=== PATIENT | male | born 1970 | race Caucasian/White ===

== ENCOUNTER 2017-02-27 12:35 | Emergency (ER) | payer OTHER ==
[2017-02-27 13:04] VITALS: BMI 20.5
[2017-02-27 13:05] VITALS: RESP 18; TEMP 98
[2017-02-27] MEDS ORDERED: Tetracaine 0.5% Ophth (OR ONLY) ONE (13:34)
[2017-02-27] MEDS ORDERED: Tetracaine 0.5% Ophth 2 ML BOTTLE OD ONE (13:43)
[2017-02-27] MEDS ORDERED: Fluorescein 1 mg Ophthalmic Strip OD ONE (13:43)
--- NOTE | 2017-02-27 14:06 | C.PDOC ---
History Of Present Illness 46 y/o male presents to the ED with complaints of right eye pain and irritation. 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 History of heroin abuse, detox 07/2016 and 08/2016. Pt clean for 3 months, currently using. Denies LOC, vomiting or any other complaints. Time Seen by Provider: 02/27/17 13:41 Chief Complaint (Nursing): Eye Problem History Per: Patient History/Exam Limitations: no limitations Onset/Duration Of Symptoms: Hrs Current Symptoms Are (Timing): Still Present Injury To Eye?: Yes Severity: Moderate Quality: "Pain" Wears Contact Lens?: No Associated Symptoms: Pain, Decreased Vision, FB Sensation Recent travel outside of the [place]: No Past Medical History Reviewed: Historical Data, Nursing Documentation, Vital Signs Vital Signs: Last Vital Signs Temp 98.0 F 02/27/17 13:05 Pulse 87 02/27/17 13:05 Resp 18 02/27/17 13:05 BP 105/70 02/27/17 13:05 Pulse Ox 98 02/27/17 14:15 Family History: States: Unknown Family Hx - Social History Hx Tobacco Use: Yes Hx Alcohol Use: No Hx Substance Use: No - Immunization History Hx Tetanus Toxoid Vaccination: No Hx Influenza Vaccination: No Hx Pneumococcal Vaccination: No Review Of Systems Except As Marked, All Systems Reviewed And Found Negative. Eyes: Positive for: Pain (right eye pain/injury), Vision Change (decreased vision right eye) Gastrointestinal: Negative for: Vomiting Physical Exam - Physical Exam Appears: Non-toxic, No Acute Distress, Other (hypersomnolent) Skin: Warm, Dry, No Rash Head: Atraumatic, Normacephalic Eye(s): bilateral: Other (Pinpoint pupils. Fluoroscein stain with 2 drops tetracaine on right eye using pelayo lamp noting large corneal abrasion from 7-1 o'clock, tiny foreign body at center or cornea, removed with needle) Chest: Symmetrical Cardiovascular: Rhythm Regular, No Murmur Respiratory: Normal Breath Sounds, No Rales, No Rhonchi, No Wheezing Neurological/Psych: Oriented x3, Normal Speech ED Course And Treatment O2 Sat by Pulse Oximetry: 98 (room air) Pulse Ox Interpretation: Normal Reevaluation Time: 14:05 Reassessment Condition: Improved Medical Decision Making Medical Decision Making: large R corneal abrasion with small FB. FB removed, well tolerated. interested in repeat heroine detox, but not today. Would rather call for availability later this week Unable to prescribe narcotic pain relievers for this corneal pain as pt admits to active heroine abuse daily. Disposition Doctor Will See Patient In The: Office Counseled Patient/Family Regarding: Studies Performed, Diagnosis - Disposition Referrals: [facility] Grabiel Harrington MD [Staff Provider] - Disposition: HOME/ ROUTINE Disposition Time: 14:05 Condition: GOOD Additional Instructions: ice pack to R eye for pain control Motrin 600 mg every 6 hours as needed Follow-up with Dr. Harrington- Opthalmologist- for re-eval in 1-2 days Call our Crisis Workers to seek availability for Heroine detox programs this week [phone] Instructions: Corneal Abrasion (ED), Eye Foreign Body (ED) - Clinical Impression Clinical Impression: Drug abuse, Corneal abrasion, Contusion of eye, Corneal foreign body - Scribe Statement The provider has reviewed the documentation as recorded by the Nubiaibtom Huff Provider Attestation: All medical record entries made by the Nubiaibe were at my direction and personally dictated by me. I have reviewed the chart and agree that the record accurately reflects my personal performance of the history, physical exam, medical decision making, and the department course for this patient. I have also personally directed, reviewed, and agree with the discharge instructions and disposition.
[2017-02-27 14:20] VITALS: BP 124/72; PULSE 71
[2017-02-27 14:23] VITALS: O2SAT 98
== END 2017-02-27 14:25 | disposition home or self-care (01) ==
LOC: C.ER 12:35
DX: T15.01XA Foreign body in cornea, right eye, initial encounter (principal); S05.11XA Contusion of eyeball and orbital tissues, right eye, initial encounter; W22.8XXA Striking against or struck by other objects, initial encounter; Y92.89 Other specified places as the place of occurrence of the external cause; Y99.0 Civilian activity done for income or pay; F11.10 Opioid abuse, uncomplicated

== ENCOUNTER 2017-03-04 22:49 | Inpatient (IN) | payer MEDICAID, OTHER ==
[2017-03-04 22:49] VITALS: BMI 20.5
[2017-03-04 23:53] LABS: BASO # 0.1 K/uL (0.0-0.2); BASO % 0.8 % (0.0-2.0); EOS # 0.6 K/uL (0.0-0.7); EOS % 5.3 % (0.0-4.0); HEMOGLOBIN 13.3 g/dL (12.0-18.0); LYMPH # 3.8 K/uL (1.0-4.3); LYMPH % 34.7 % (20.0-40.0); MEAN CELL VOLUME 89.6 fL (80.0-94.0); MEAN CORPUSCULAR HGB CONC 32.4 g/dL (33.0-37.0); MEAN PLATELET VOLUME 8.8 fL (7.2-11.7); MONO % 8.9 % (0.0-10.0); NEUT # 5.5 K/uL (1.8-7.0); NEUT % 50.3 % (50.0-75.0); NRBC % 0.1 % (0.0-2.0); RBC 4.58 Mil/uL (4.40-5.90); RED CELL DISTRIBUTION WIDTH 13.3 % (11.5-14.5)
[2017-03-04 23:56] LABS: SQUAMOUS EPITHIAL < 1 /hpf (0-5); URINE BILIRUBIN NEGATIVE (NEGATIVE); URINE BLOOD NEGATIVE (NEGATIVE); URINE CLARITY Clear (Clear); URINE COLOR Yellow (YELLOW); URINE GLUCOSE (UA) NORMAL (Normal); URINE LEUKOCYTE ESTERASE NEG Leu/uL (Negative); URINE NITRATE NEGATIVE (NEGATIVE); URINE PROTEIN NEGATIVE (NEGATIVE); URINE UROBILINOGEN NORMAL mg/dL (0.2-1.0)
[2017-03-05 00:01] LABS: ALBUMIN 3.9 g/dL (3.5-5.0)
--- NOTE | 2017-03-05 00:01 | C.PDOC ---
History Of Present Illness 46 year old male who presents to the ER as a prescreen for heroin detox; admits he is a regular heroin user. Patient was incidentally seen by this physician for a right eye corneal abrasion earlier in the week and reports he has no pain. Denies any physical complaints. Time Seen by Provider: 03/04/17 23:25 Chief Complaint (Nursing): Substance Abuse History Per: Patient History/Exam Limitations: no limitations Onset/Duration Of Symptoms: Days Current Symptoms Are (Timing): Still Present Suicide/Self Injury Attempted (Context): None Modifying Factor(s): Narcotics Associated Symptoms: denies: Depression, Suicidal Thoughts, Suicidal Plan Involuntary Hold By: None Recent travel outside of the [place]: No Past Medical History Reviewed: Historical Data, Nursing Documentation, Vital Signs Vital Signs: Last Vital Signs Temp 98.1 F 03/04/17 23:12 Pulse 78 03/04/17 23:12 Resp 16 03/04/17 23:12 BP 126/73 03/04/17 23:12 Pulse Ox 100 03/05/17 00:04 - Medical History PMH: Anxiety, Depression, Schizophrenia Surgical History: No Surg Hx Family History: States: Unknown Family Hx - Social History Hx Tobacco Use: Yes Hx Alcohol Use: No Hx Substance Use: Yes - Immunization History Hx Tetanus Toxoid Vaccination: No Hx Influenza Vaccination: No Hx Pneumococcal Vaccination: No Review Of Systems Constitutional: Negative for: Fever, Chills Eyes: Negative for: Pain Gastrointestinal: Negative for: Nausea, Vomiting, Diarrhea Physical Exam - Physical Exam Appears: Non-toxic, No Acute Distress Skin: Normal Color, Warm, Dry Head: Atraumatic, Normacephalic Eye(s): bilateral: Normal Inspection, PERRL, EOMI Oral Mucosa: Moist Chest: Symmetrical, No Tenderness Cardiovascular: Rhythm Regular, No Murmur Respiratory: Normal Breath Sounds, No Rales, No Rhonchi, No Wheezing Gastrointestinal/Abdominal: Soft, No Tenderness Neurological/Psych: Oriented x3, Normal Speech, Normal Cognition ED Course And Treatment - Laboratory Results Result Diagrams: 03/04/17 23:50 03/04/17 23:50 Lab Interpretation: Abnormal (tox + benzo/opiates) O2 Sat by Pulse Oximetry: 100 (Room air) Pulse Ox Interpretation: Normal Progress Note: Blood work ordered. Crisis contacted. Reevaluation Time: 00:36 Reassessment Condition: Improved - Physician Consult Information Outcome Of Conversation: 2330: d/w Crisis Evaluators- pending dispo Medical Decision Making Medical Decision Making: persistent heroine and benzo abuse. Disposition - Disposition Disposition Time: 01:00 Condition: GOOD - Clinical Impression Clinical Impression: Narcotic drug user, Benzodiazepine abuse - Scribe Statement The provider has reviewed the documentation as recorded by the Scribe Grabiel Rudolph All medical record entries made by the Scribe were at my direction and personally dictated by me. I have reviewed the chart and agree that the record accurately reflects my personal performance of the history, physical exam, medical decision making, and the department course for this patient. I have also personally directed, reviewed, and agree with the discharge instructions and disposition. Physician Patient Turnover Patient Signed Over To: Manuel Griffin Handoff Comments: pending dispo by Crisis Srinivasa
[2017-03-05 00:03] LABS: GFR AFRICAN-AMERICAN > 60; GFR NON-AFRICAN AMERICAN > 60
[2017-03-05 00:04] LABS: ALB/GLOB RATIO 1.3 (1.0-2.1); ALT/SGPT 37 U/L (21-72); AST/SGOT 27 U/L (17-59); BLOOD UREA NITROGEN 19 mg/dL (9-20); CALCIUM 8.6 mg/dl (8.6-10.4)
[2017-03-05 00:05] LABS: BARBITURATES, UR NEGATIVE (NEGATIVE)
[2017-03-05 00:09] LABS: PHENCYCLIDINE, UR NEGATIVE (NEGATIVE)
[2017-03-05 00:11] LABS: BENZODIAZEPINES, UR POSITIVE (NEGATIVE); OPIATES, UR POSITIVE (NEGATIVE)
[2017-03-05 03:24] VITALS: RESP 18
--- NOTE | 2017-03-05 08:08 | PCM.BM ---
<Daria Flores - Last Filed: 03/05/17 08:07> Treatment Plan Problems - Problems identified on initial assessmt Polysubstance Dependence Date Initiated: 03/05/17 Time Initiated: 08:08 Assessment reference: NA Status: Active Treatment assets and liabiliti Patient Assests: ADL independent Patient Liabilities: substance abuse - Milieu Protocol Maintain good personal hygiene: daily Encourage regular showers, daily Remind patient to perform daily oral care, daily Assist patient to perform ADL's Maintain personal safety: every shift Educate patient to report safety concerns to staff, every shift Monitor environment for contraband/sharps Medication safety: Monitor for expected outcome, potential side effects: every shift, Assess barriers to learning: every shift, Assess readiness for medication education: every shift <Adam Jane - Last Filed: 03/06/17 09:42> - Diagnosis (1) Acute narcotic withdrawal Status: Acute Interventions: 03/06/17 09:43 * Assess 7x/week regarding severity of withdrawal * Educate regarding risks, benefits, side effects and alternatives of medications * Use Motivational Interviewing for abstinence * Use CBT for relapse prevention * Medication management for withdrawal symptoms * Encourage medication assisted treatment * (2) Narcotic drug user Status: Acute Interventions: 03/06/17 09:44 * Assess 7x/week regarding severity of withdrawal * Educate regarding risks, benefits, side effects and alternatives of medications * Use Motivational Interviewing for abstinence * Use CBT for relapse prevention * Medication management for withdrawal symptoms * Encourage medication assisted treatment * <Gretchen Valera - Last Filed: 03/06/17 13:12> Discharge/Continuing Care - Education Needs Education Needs: Patient Coping Skills, Significant Other Coping Skills - Discharge Discharge Criteria: Other (PT. IS SIGNING OUT AMA.) - Treatment Team Participation Patient/Family/SO Statement: 03/06/17 13:12 I'M NOT GONNA MISS MY PROBATION MEETING TODAY. Discussed with Family/SO: No Was Patient/Family/SO present at Treatment Team Meeting: Yes
[2017-03-05] MEDS ORDERED: Aluminum Hydroxide/Magnesium Hydroxide Susp (30 mL) PO PRN (09:34)
--- NOTE | 2017-03-05 09:39 | PCM.PSYCH ---
Initial Psychiatric Evaluation - Initial Psychiatric Evaluation Type of Admission: Voluntary Legal Status: Capacity Chief Complaint (in patient's own words): I am withdrawing form heroin.' History of Present Illness and Precipitating Events: This is a 46 years old HM who lives with his and 3 kids, came to the ED to get help in heroin detox. Patient denies any history of inpatient psychiatric hospitalization and denies any h/o follow up with any psychiatrist. Patient reports that he remained sober for 4 years and started going to the Methadone program at [facility]. But he started developing side effects of the medications, including hair loss. He stopped going to the program and relapsed on heroin. He reports of abusing 15-20 bags daily, last abuse was 20 bags yesterday. Patient reports withdrawal symptoms including sweating, headaches, and anxiety. He reports irritability but denies any depressive, manic or anxiety symptoms. Patient denies any auditory or visual hallucinations or any psychotic symptoms. He reports off and on drinking but denies any other substance abuse. Past medical history None reported Current Medications: Active Medications Generic Name Dose Route Start Last Admin Trade Name Freq PRN Reason Stop Dose Admin Acetaminophen 650 mg 03/05/17 09:34 Tylenol 325mg Tab PO Q4H PRN Fever greater than 101 F Al Hydrox/Mg Hydrox/Simethicone 30 ml 03/05/17 09:34 Maalox 30 Ml PO TID PRN Indigestion / Heartburn Clonidine HCl 0.1 mg 03/05/17 09:34 Catapres PO Q8 PRN COWS Score More or Equal to 5 Gabapentin 100 mg 03/05/17 10:00 Neurontin PO TID MARVA Hydroxyzine HCl 25 mg 03/05/17 09:35 Atarax PO Q6 PRN Agitation Loperamide HCl 2 mg 03/05/17 09:34 Imodium PO Q8 PRN Diarrhea Ondansetron HCl 4 mg 03/05/17 09:34 Zofran Tab PO Q8 PRN Nausea/Vomiting Trazodone HCl 50 mg 03/05/17 22:00 Desyrel PO HS MARVA Past Psychiatric History - Past Psychiatric History Previous Treatment History: Inpatient Pertinent Medical Hx (Current Medical&Sleep Prob, Allergies): Allergies Allergy/AdvReac Type Severity Reaction Status Date / Time No Known Allergies Allergy Verified 02/27/17 13:04 No Known Home Med 08/23/16 Review of Systems - Review of Systems All systems: reviewed and no additional remarkable complaints except - Psychiatric Psychiatric: Anxiety, Irritability Mental Status Examination - Personal Presentation Personal Presentation: Looks stated age - Affect Affect: Constricted - Motor Activity Motor Activity: Calm - Reliability in Providing Information Reliability in Providing Information: Good - Speech Speech: Organized - Mood Mood: Anxious - Formal Thought Process Formal Thought Process: No Impairment - Obsessions/Compulsions Obsessions: No Compulsions: No - Cognitive Functions Orientation: Person, Place, Situation, Time Sensorium: Alert Attention/Concentration: Attentive Abstract Thinking: Burton Estimate of Intelligence: Below average Judgement: Imparied, as evidence by: Poor judgement, Intact, as evidence by: Insight regarding need for hospitalization - Risk Risk: Withdrawal, Diminished functioning - Strength & Assets Inventory Strength & Assets Inventory: Family support DSM 5 DX - DSM 5 DSM 5 Diagnosis: Opioid use disorder severe Opioid withdrawal - Recommended/Plan of Treatment Treatment Recommendations and Plan of Treatment: Opioid use disorder severe CBT Psychoeducation Supportive therapy, individual therapy Use NE for abstinence Opioid withdrawal CBT Psychoeducation Supportive therapy, individual therapy Clonidine when necessary Start Methadone when scoring PRN meds - Smoking Cessation Smoking Cessation Initiated: No
--- NOTE | 2017-03-05 17:34 | RAD ---
PROCEDURE: AP pelvis and oblique view of the right hip HISTORY: Difficulty ambulating (right hip) COMPARISON: No prior similar study for comparison. TECHNIQUE: AP view of the pelvis oblique view of the right hip FINDINGS: No evidence of acute fracture or dislocation. The osseous structures are grossly unremarkable. IMPRESSION: No evidence of acute fracture or dislocation.
[2017-03-06 09:44] VITALS: BP 120/74; PULSE 98; TEMP 98.7; O2SAT 99
--- NOTE | 2017-03-06 10:20 | PCM.PYCHDC ---
Mental Status Examination - Mental Status Examination Orientation: Person, Place, Situation, Time Memory: Intact Mood: Neutral Affect: Constricted Speech: Soft Attention: Poor Concentration: Poor Fund of Knowledge: Poor Formal Thought Process: No Impairment Suicidal Ideation: No Current Homicidal Ideation?: No Discharge Summary - Discharge Note Reason for Hospitalization: Patient was admitted for opioid detox. Consultations:: List each consultation separately and include: 1. Reason for request. 2. Findings. 3. Follow-up Summary of Hospital Course include:: 1. Description of specific treatment plan utilized for patients during their course of treatmen. 2. Summarize the time- course for resolution of acute symptoms and/or regressed behaviors. 3. Describe issues identified and worked on during hospitalization. 4. Describe medication utilized. 5. Describe medical problems identified and treated. 6. Reassessment of suicide risk Summary of Hospital Course: Upon admission This is a 46 years old HM who lives with his and 3 kids, came to the ED to get help in heroin detox. Patient denies any history of inpatient psychiatric hospitalization and denies any h/o follow up with any psychiatrist. Patient reports that he remained sober for 4 years and started going to the Methadone program at [facility]. But he started developing side effects of the medications, including hair loss. He stopped going to the program and relapsed on heroin. He reports of abusing 15-20 bags daily, last abuse was 20 bags yesterday. Patient reports withdrawal symptoms including sweating, headaches, and anxiety. He reports irritability but denies any depressive, manic or anxiety symptoms. Patient denies any auditory or visual hallucinations or any psychotic symptoms. He reports off and on drinking but denies any other substance abuse. Past medical history None reported Upon discharge The pt was admitted and started on treatment with psychotherapy, support, psychoeducation and medications. MS and CBT used. The pt attended groups and activities, as well as milieu therapy. All the risks and benefits of medications are discussed and the patient understood and agreed. The pt did not complete the detox protocol, and left against medical advice. DYFS was called. - Diagnosis (1) Acute narcotic withdrawal Status: Acute Priority: Medium Comment: Pt stable Nicoderm patch Pt recommended to follow up with psych out-patient (2) Narcotic drug user Status: Acute Comment: Pt stable Nicoderm patch Pt recommended to follow up with psych outpatient - Final Diagnosis (DSM 5) Condition upon Discharge: FAIR DSM 5: Opioid use disorder severe Opioid withdrawal Disposition: AGAINST MEDICAL ADVICE Follow-up Treatment Plan: Follow after care plan as discussed. Patient refused to complete detox protocol before leaving against medical advice, and states that he will "stay occupied" to prevent relapse. Use relapse prevention skills. Return to ER or call 911 if suicidal, homicidal or symptoms relapse. Stay away from stress, alcohol and drugs. See primary doctor once a year.
== END 2017-03-06 10:48 | disposition left against medical advice (07) | DRG 743 ==
LOC: C.ER 22:49 → C.7D 03-05 00:43
PROVIDERS: ADMIT Psychiatry & Neurology Psychiatry; ATTEND Psychiatry & Neurology Psychiatry
PROC: HZ2ZZZZ Detoxification Services for Substance Abuse Treatment (ICD-10-PCS; principal; 2017-03-05)
PROC: HZ91ZZZ Pharmacotherapy for Substance Abuse Treatment, Methadone Maintenance (ICD-10-PCS; 2017-03-05)
PROC: HZ59ZZZ Individual Psychotherapy for Substance Abuse Treatment, Supportive (ICD-10-PCS; 2017-03-05)
PROC: HZ46ZZZ Group Counseling for Substance Abuse Treatment, Psychoeducation (ICD-10-PCS; 2017-03-05)
DX: F11.23 Opioid dependence with withdrawal (principal); F13.10 Sedative, hypnotic or anxiolytic abuse, uncomplicated; F20.9 Schizophrenia, unspecified; F41.9 Anxiety disorder, unspecified; F17.200 Nicotine dependence, unspecified, uncomplicated

== ENCOUNTER 2017-03-14 17:43 | Emergency (ER) | payer MEDICAID, OTHER ==
[2017-03-14 17:43] VITALS: BMI 20.5
[2017-03-14 17:50] VITALS: O2SAT 98
--- NOTE | 2017-03-14 18:04 | C.PDOC ---
History Of Present Illness 46 yo male come in for evaluation of Right hip pain for past 3 weeks " after was lifting heavy boxes". Pt reports, pain is localized, worse with movement. Pt admits, was seen here before due to same complaints and xray performed without acute abnormalities. Pt sts, his AM, had difficulty to ambulate due to Right hip pain". Otherwise, pt denies recent direct trauma or injury. fever, chills, sore throat, neck pain, abd. pain, N/V, UTi sx, saddle anesthesia, incontinence, denies weakness, sensory or vascular deficits to B/L LEs. Ambulate to ED. Time Seen by Provider: 03/14/17 17:53 Chief Complaint (Nursing): Hip Pain History Per: Patient Past Medical History Reviewed: Historical Data, Nursing Documentation, Vital Signs Vital Signs: Last Vital Signs Temp 98.0 F 03/14/17 19:09 Pulse 70 03/14/17 19:09 Resp 18 03/14/17 19:09 BP 122/78 03/14/17 19:09 Pulse Ox 98 03/14/17 19:09 - Medical History PMH: Anxiety, Depression, Schizophrenia Denies: Diabetes, Hepatitis, HIV, HTN, Seizures, Sexually Transmitted Disease - [facility] Procedures DETOXIFICATION SERVICES FOR SUBSTANCE ABUSE TREATMENT (03/05/17) GROUP SHUTTLE VENEERING SUPERVISOR FOR SUBSTANCE ABUSE TREATMENT, PSYCHOEDUCATION (03/05/17) INDIV PSYCHOTHERAPY FOR SUBSTANCE ABUSE TREATMENT, SUPPORT (03/05/17) PHARMACOTHERAPY FOR SUBSTANCE ABUSE, METHADONE MAINT (03/05/17) Family History: States: Unknown Family Hx - Social History Hx Tobacco Use: Yes Hx Alcohol Use: No Hx Substance Use: Yes - Immunization History Hx Tetanus Toxoid Vaccination: No Hx Influenza Vaccination: No Hx Pneumococcal Vaccination: No Review Of Systems Except As Marked, All Systems Reviewed And Found Negative. Constitutional: Negative for: Fever, Chills ENT: Negative for: Throat Pain Cardiovascular: Negative for: Chest Pain Gastrointestinal: Negative for: Nausea, Vomiting, Abdominal Pain, Diarrhea Genitourinary: Negative for: Dysuria, Frequency, Incontinence, Penile Discharge Musculoskeletal: Positive for: Back Pain Skin: Negative for: Rash, Bruising Neurological: Negative for: Weakness, Numbness Physical Exam - Physical Exam Appears: Well, Non-toxic, No Acute Distress Skin: Normal Color, Warm, Dry, No Rash Throat: No Exudate, No Drooling Gastrointestinal/Abdominal: Soft, No Tenderness, No Distention, No Guarding Back: No CVA Tenderness, No Vertebral Tenderness, Paraspinal Tenderness ( diffuse Right sided lumbar tenderness extend down to gluteal area overlying sciatica neurve. No skin changes, no palpable eformity.) Extremity: No Pedal Edema, No Calf Tenderness (B/L), No Deformity, No Swelling Pulses: Left Dorsalis Pedis: Normal, Right Dorsalis Pedis: Normal DTR: Knee (R): 2+, Knee (L): 2+, Ankle (R): 2+, Ankle (L): 2+ Neurological/Psych: Oriented x3, Normal Speech, Normal Motor, Normal Sensation, Normal Reflexes ED Course And Treatment O2 Sat by Pulse Oximetry: 98 Progress Note: On re-evaluation, pt is afebrile, hemodynamicaly stable. Non- toxic. Ambulatory in ED with stable gait. Abd: benign. Back: (-) CVA tenderness. neurologicaly intact. Pt has clinical findings c/w Right sided sciatica pain. Pt advised. Ref. to F/U with PMD, PM in 2-3 days for re-eavl. return to ED if any worsening or new changes. Disposition Counseled Patient/Family Regarding: Diagnosis, Need For Followup, Rx Given - Disposition Referrals: [facility] [Outside] [facility] [place] [Outside] Disposition: HOME/ ROUTINE Disposition Time: 18:49 Condition: STABLE Additional Instructions: LIght duty to lower back, avoid heavy lifting, bending, etc. take medication as prescribed for pain Follow up with PMD in 2-3 days for re-evaluation. return to ED if any worsening or new changes. Prescriptions: Ibuprofen [Motrin Tab] 600 mg PO Q6 #20 tab Methocarbamol [Robaxin] 500 mg PO TID #14 tab Instructions: Sciatica (ED) - Clinical Impression Clinical Impression: Sciatica
[2017-03-14 19:10] VITALS: BP 122/78; PULSE 70; RESP 18; TEMP 98
== END 2017-03-14 19:10 | disposition home or self-care (01) ==
LOC: C.ER 17:43
DX: M54.31 Sciatica, right side (principal)
CPT/HCPCS: 96372; 99284; J1885

== ENCOUNTER 2017-03-15 15:23 | Emergency (ER) | payer OTHER ==
[2017-03-15 15:23] VITALS: BMI 20.5
[2017-03-15] MEDS ORDERED: Dexamethasone 4 mg/1 ml IM STA (16:01)
[2017-03-15] MEDS ORDERED: Oxycodone/Acetaminophen 5/325 mg Tab PO STA (16:01)
[2017-03-15] MEDS ORDERED: Naproxen 550 mg Tab PO STA (16:02)
[2017-03-15] MEDS ORDERED: Dexamethasone 4 mg/1 ml ONE (16:15)
[2017-03-15] MEDS ORDERED: Naproxen 550 mg Tab PO ONE (16:16)
[2017-03-15] MEDS ORDERED: Oxycodone/Acetaminophen 5/325 mg Tab ONE (16:16)
--- NOTE | 2017-03-15 16:23 | C.PDOC ---
History Of Present Illness 46 yr old male presents to the ER with complaints of right lower back pain and right hip pain for the past 1 month. Patient states the pain is consistent. Reports of similar complaints and was seen in [facility] yesterday for same complaints. Patient denies fever, chest pain, SOB, nausea, vomiting, abdominal pain, diarrhea, constipation, dysuria, incontinence, hematuria, weakness or numbness. Time Seen by Provider: 03/15/17 15:33 Chief Complaint (Nursing): Hip Pain History Per: Patient History/Exam Limitations: no limitations Onset/Duration Of Symptoms: Persistent (1 month ) Current Symptoms Are (Timing): Still Present Past Medical History Reviewed: Historical Data, Nursing Documentation, Vital Signs Vital Signs: Last Vital Signs Temp 98.4 F 03/15/17 17:26 Pulse 80 03/15/17 17:26 Resp 20 03/15/17 17:26 BP 148/82 03/15/17 17:26 Pulse Ox 98 03/15/17 17:35 - Medical History PMH: Anxiety, Depression, Schizophrenia - [facility] Procedures DETOXIFICATION SERVICES FOR SUBSTANCE ABUSE TREATMENT (03/05/17) GROUP MANAGER EMERGENCY DEPARTMENT FOR SUBSTANCE ABUSE TREATMENT, PSYCHOEDUCATION (03/05/17) INDIV PSYCHOTHERAPY FOR SUBSTANCE ABUSE TREATMENT, SUPPORT (03/05/17) PHARMACOTHERAPY FOR SUBSTANCE ABUSE, METHADONE MAINT (03/05/17) Family History: States: No Known Family Hx - Social History Hx Tobacco Use: Yes Hx Alcohol Use: No Hx Substance Use: Yes - Immunization History Hx Tetanus Toxoid Vaccination: No Hx Influenza Vaccination: No Hx Pneumococcal Vaccination: No Review Of Systems Except As Marked, All Systems Reviewed And Found Negative. Constitutional: Negative for: Fever Cardiovascular: Negative for: Chest Pain Respiratory: Negative for: Shortness of Breath Gastrointestinal: Negative for: Nausea, Vomiting, Abdominal Pain, Diarrhea, Constipation Genitourinary: Negative for: Dysuria, Incontinence, Hematuria Musculoskeletal: Positive for: Back Pain (Right lower back pain ) Neurological: Negative for: Weakness, Numbness Physical Exam - Physical Exam Appears: Non-toxic, No Acute Distress Skin: Warm, Dry, No Rash Head: Atraumatic, Normacephalic Eye(s): bilateral: Normal Inspection, PERRL, EOMI Oral Mucosa: Moist Neck: Normal ROM, No Midline Cervical Tenderness, No Paracervical Tenderness, Supple Chest: Symmetrical, No Tenderness Cardiovascular: Rhythm Regular, No Friction Rub, No Murmur Respiratory: Normal Breath Sounds, No Rales, No Rhonchi, No Stridor, No Wheezing Gastrointestinal/Abdominal: Normal Exam, Soft, No Tenderness Back: No CVA Tenderness, Other ((+) Moderate right sided paralumbar tenderness. ) Extremity: Normal ROM, No Swelling Neurological/Psych: Oriented x3, Normal Speech, Normal Motor Gait: Steady ED Course And Treatment O2 Sat by Pulse Oximetry: 98 (RA ) Pulse Ox Interpretation: Normal Progress Note: Old records were reviewed, patient was dischagred with Motrin and Robaxin yesterday. On re-exam, the patient reports improvement of symptoms. Ambulatory in the ED with steady gait. Lungs are CTA, heart is RRR, Abdomen is soft, non-tender and patient is tolerating PO well. Follow up with the medical doctor within 1-2 days. Return if worsened. Disposition - Disposition Referrals: Mor Eden MD [Non-Staff] - Disposition: HOME/ ROUTINE Disposition Time: 17:16 Condition: GOOD Additional Instructions: Follow up with the medical doctor within 1-2 days. Return if worsened. 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 - Scribe Statement The provider has reviewed the documentation as recorded by the Scribe Eneida Marquez All medical record entries made by the Scribe were at my direction and personally dictated by me. I have reviewed the chart and agree that the record accurately reflects my personal performance of the history, physical exam, medical decision making, and the department course for this patient. I have also personally directed, reviewed, and agree with the discharge instructions and disposition.
[2017-03-15 17:27] VITALS: BP 148/82; PULSE 80; RESP 20; TEMP 98.4
[2017-03-15 17:35] VITALS: O2SAT 98
== END 2017-03-15 17:32 | disposition home or self-care (01) ==
LOC: C.ER 15:23
DX: M54.16 Radiculopathy, lumbar region (principal)
CPT/HCPCS: 96372; 99284; J1100

== ENCOUNTER 2017-09-01 18:41 | Emergency (ER) | payer OTHER ==
[2017-09-01 18:42] VITALS: BMI 20.5
[2017-09-01 18:48] VITALS: BP 119/84; PULSE 87; RESP 16; TEMP 97.8; O2SAT 98
== END 2017-09-01 18:57 | disposition left against medical advice (07) ==
LOC: C.ER 18:41
DX: Z02.89 Encounter for other administrative examinations (principal); Z00.00 Encounter for general adult medical examination without abnormal findings

== ENCOUNTER 2017-09-08 13:36 | Emergency (ER) | payer OTHER ==
[2017-09-08 13:36] VITALS: BMI 20.5
[2017-09-08 14:05] VITALS: BP 123/74; PULSE 79; RESP 18; TEMP 98.5; O2SAT 99
--- NOTE | 2017-09-08 14:38 | C.PDOC ---
History Of Present Illness 47 year old male presents to the ER for detox from heroin. Patient states that he uses heroin daily intranasally. Patient denies having any suicidal and homicidal ideation. Time Seen by Provider: 09/08/17 14:24 Chief Complaint (Nursing): Substance Abuse History Per: Patient History/Exam Limitations: no limitations Past Medical History Reviewed: Historical Data, Nursing Documentation, Vital Signs Vital Signs: Last Vital Signs Temp 98.5 F 09/08/17 14:03 Pulse 79 09/08/17 14:03 Resp 18 09/08/17 14:03 BP 123/74 09/08/17 14:03 Pulse Ox 99 09/08/17 15:41 - Medical History PMH: Anxiety, Depression, Schizophrenia Surgical History: No Surg Hx - [facility] Procedures DETOXIFICATION SERVICES FOR SUBSTANCE ABUSE TREATMENT (03/05/17) GROUP SECTION GANG WORKER FOR SUBSTANCE ABUSE TREATMENT, PSYCHOEDUCATION (03/05/17) INDIV PSYCHOTHERAPY FOR SUBSTANCE ABUSE TREATMENT, SUPPORT (03/05/17) PHARMACOTHERAPY FOR SUBSTANCE ABUSE, METHADONE MAINT (03/05/17) Family History: States: No Known Family Hx - Social History Hx Tobacco Use: Yes Hx Alcohol Use: No Hx Substance Use: Yes - Immunization History Hx Tetanus Toxoid Vaccination: No Hx Influenza Vaccination: No Hx Pneumococcal Vaccination: No Review Of Systems Except As Marked, All Systems Reviewed And Found Negative. Physical Exam - Physical Exam Appears: No Acute Distress, Other (bizzare affect) Skin: Normal Color, Warm, Dry, No Diaphoretic, No Rash Head: Atraumatic, Normacephalic Eye(s): bilateral: Normal Inspection, PERRL, EOMI Nose: Normal Oral Mucosa: Moist Neck: Supple Chest: Symmetrical Cardiovascular: Rhythm Regular Respiratory: Normal Breath Sounds, No Accessory Muscle Use, No Rhonchi, No Wheezing Extremity: Bilateral: Atraumatic, Normal ROM Neurological/Psych: Oriented x3, Normal Speech, Normal Motor, Normal Sensation Gait: Steady ED Course And Treatment O2 Sat by Pulse Oximetry: 99 (RA) Pulse Ox Interpretation: Normal Medical Decision Making Medical Decision Making: Patient asking for Detox from opiates. Case was discussed with Crisis. There are no beds available. Patient has been given a list of detox centers and a phone number for prescreen. 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 - Scribe Statement The provider has reviewed the documentation as recorded by the Nubiaibe Romina Prado Provider Attestation All medical record entries made by the Nubiaibe were at my direction and personally dictated by me. I have reviewed the chart and agree that the record accurately reflects my personal performance of the history, physical exam, medical decision making, and the department course for this patient. I have also personally directed, reviewed, and agree with the discharge instructions and disposition.
== END 2017-09-08 14:44 | disposition home or self-care (01) ==
LOC: C.ER 13:36
DX: F11.10 Opioid abuse, uncomplicated (principal)

== ENCOUNTER 2017-09-12 14:52 | Inpatient (IN) | payer MEDICAID, OTHER ==
[2017-09-12 14:52] VITALS: BMI 20.5
[2017-09-12 16:11] LABS: BASO # 0.1 K/uL (0.0-0.2); BASO % 1.1 % (0.0-2.0); EOS # 0.4 K/uL (0.0-0.7); EOS % 4.7 % (0.0-4.0); HEMOGLOBIN 13.4 g/dL (12.0-18.0); LYMPH # 3.1 K/uL (1.0-4.3); LYMPH % 33.9 % (20.0-40.0); MEAN CELL VOLUME 89.2 fL (80.0-94.0); MEAN CORPUSCULAR HEMOGLOBIN 29.8 pg (27.0-31.0); MEAN CORPUSCULAR HGB CONC 33.4 g/dL (33.0-37.0); MEAN PLATELET VOLUME 8.2 fL (7.2-11.7); MONO # 0.9 K/uL (0.0-0.8); MONO % 9.6 % (0.0-10.0); NEUT # 4.6 K/uL (1.8-7.0); NEUT % 50.7 % (50.0-75.0); RBC 4.48 Mil/uL (4.40-5.90); RED CELL DISTRIBUTION WIDTH 13.7 % (11.5-14.5)
[2017-09-12 16:23] LABS: BLOOD UREA NITROGEN 12 mg/dL (9-20); GFR AFRICAN-AMERICAN > 60; GFR NON-AFRICAN AMERICAN > 60
[2017-09-12 16:24] LABS: ALB/GLOB RATIO 1.2 (1.0-2.1); ALBUMIN 3.9 g/dL (3.5-5.0); ALT/SGPT 65 U/L (21-72); AST/SGOT 25 U/L (17-59); CALCIUM 8.3 mg/dl (8.6-10.4)
[2017-09-12 16:27] LABS: BARBITURATES, UR NEGATIVE (NEGATIVE); BENZODIAZEPINES, UR NEGATIVE (NEGATIVE); PHENCYCLIDINE, UR NEGATIVE (NEGATIVE)
[2017-09-12 16:29] LABS: OPIATES, UR POSITIVE (NEGATIVE)
[2017-09-12 16:31] LABS: URINE BACTERIA RARE (<OCC); URINE BILIRUBIN NEGATIVE (NEGATIVE); URINE BLOOD NEGATIVE (NEGATIVE); URINE CALCIUM OXALATE CRYSTALS OCC /hpf (<OCC); URINE CLARITY Clear (Clear); URINE COLOR Yellow (YELLOW); URINE GLUCOSE (UA) NORMAL (Normal); URINE LEUKOCYTE ESTERASE NEG Leu/uL (Negative); URINE NITRATE NEGATIVE (NEGATIVE); URINE PROTEIN NEGATIVE (NEGATIVE)
--- NOTE | 2017-09-12 17:01 | C.PDOC ---
History Of Present Illness 47 y/o male presents to ED requesting heroin detox. Patient reports last used this morning and denies IV drug use, other drug use, history of seizures or any other complaints at this time. Time Seen by Provider: 09/12/17 15:29 Chief Complaint (Nursing): Substance Abuse History Per: Patient History/Exam Limitations: no limitations Onset/Duration Of Symptoms: Days Current Symptoms Are (Timing): Still Present Suicide/Self Injury Attempted (Context): None Past Medical History Reviewed: Historical Data, Nursing Documentation, Vital Signs Vital Signs: Last Vital Signs Temp 97.9 F 09/12/17 15:21 Pulse 94 H 09/12/17 15:21 Resp 20 09/12/17 15:21 BP 126/78 09/12/17 15:21 Pulse Ox 99 09/12/17 15:21 - Medical History PMH: Anxiety, Depression, Schizophrenia Surgical History: No Surg Hx - [facility] Procedures DETOXIFICATION SERVICES FOR SUBSTANCE ABUSE TREATMENT (03/05/17) GROUP DIRECTOR MARKETING ANALYTICS FOR SUBSTANCE ABUSE TREATMENT, PSYCHOEDUCATION (03/05/17) INDIV PSYCHOTHERAPY FOR SUBSTANCE ABUSE TREATMENT, SUPPORT (03/05/17) PHARMACOTHERAPY FOR SUBSTANCE ABUSE, METHADONE MAINT (03/05/17) Family History: States: No Known Family Hx - Social History Hx Tobacco Use: Yes Hx Alcohol Use: No Hx Substance Use: Yes - Immunization History Hx Tetanus Toxoid Vaccination: No Hx Influenza Vaccination: No Hx Pneumococcal Vaccination: No Review Of Systems Constitutional: Negative for: Fever, Chills Cardiovascular: Negative for: Chest Pain Respiratory: Negative for: Shortness of Breath Gastrointestinal: Negative for: Nausea, Vomiting Skin: Negative for: Rash Psych: Negative for: Suicidal ideation, Withdrawal Physical Exam - Physical Exam Appears: Non-toxic, No Acute Distress Skin: Warm, Dry, No Rash Head: Atraumatic, Normacephalic Eye(s): bilateral: Normal Inspection Oral Mucosa: Moist Neck: Normal ROM, Supple Chest: Symmetrical Cardiovascular: Rhythm Regular Respiratory: No Accessory Muscle Use, No Rales, No Rhonchi, No Wheezing Gastrointestinal/Abdominal: Soft, No Tenderness, No Guarding, No Rebound Back: No CVA Tenderness Extremity: Normal ROM, Capillary Refill (<2 seconds) Neurological/Psych: Oriented x3 ED Course And Treatment - Laboratory Results Result Diagrams: 09/12/17 16:04 09/12/17 16:04 O2 Sat by Pulse Oximetry: 99 (RA) Pulse Ox Interpretation: Normal Progress Note: Patient is prescreened. 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 - Scribe Statement The provider has reviewed the documentation as recorded by the Nubiaibtom Matias All medical record entries made by the Nubiaibtom were at my direction and personally dictated by me. I have reviewed the chart and agree that the record accurately reflects my personal performance of the history, physical exam, medical decision making, and the department course for this patient. I have also personally directed, reviewed, and agree with the discharge instructions and disposition.
[2017-09-12] MEDS ORDERED: Aluminum Hydroxide/Magnesium Hydroxide Susp (30 mL) PO PRN (18:48)
--- NOTE | 2017-09-12 19:31 | PCM.BM ---
<GuerreroRut - Last Filed: 09/12/17 19:29> Treatment Plan Problems - Problems identified on initial assessmt Potential for opiate withdrawal Date Initiated: 09/12/17 Time Initiated: 19:30 Date resolved: 09/12/17 Assessment reference: NA Status: Active Priority: 1 Treatment assets and liabiliti Patient Assests: ADL independent, negotiates basic needs, cognitively intact Patient Liabilities: substance abuse (heroin) - Milieu Protocol Maintain good personal hygiene: daily Encourage regular showers, daily Remind patient to perform daily oral care, daily Assist patient to perform ADL's Conduct patient checks and document Observation sheet: Q15 minutes Maintain personal safety: every shift Educate patient to report safety concerns to staff, every shift Monitor environment for contraband/sharps Medication safety: Monitor for expected outcome, potential side effects: every shift, Assess barriers to learning: every shift, Assess readiness for medication education: every shift <Adam Jane - Last Filed: 09/13/17 14:36> - Diagnosis (1) Opioid use disorder, severe, dependence Status: Acute Interventions: 09/13/17 14:36 * Assess 7x/week regarding severity of withdrawal * Educate regarding risks, benefits, side effects and alternatives of medications * Use Motivational Interviewing for abstinence * Use CBT for relapse prevention * Medication management for withdrawal symptoms * Encourage medication assisted treatment *
--- NOTE | 2017-09-13 09:37 | PCM.PSYCH ---
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 Patient reports that he remained sober for 4 years and started going to the methadone program at [facility]. But he started developing side effects of the medications, including hair loss. He stopped going to the program and relapsed on heroin. He reports of abusing less than 10 bags daily, last abuse was yesterday. Patient reports withdrawal symptoms including sweating, chills, irritability, nausea and anxiety. He reports irritability but denies any depressive, manic or anxiety symptoms. Patient denies any auditory or visual hallucinations or any psychotic symptoms. He reports off and on drinking but denies any other substance abuse. Patient denies any history of inpatient psychiatric hospitalization and denies any h/o follow up with any psychiatrist. Past medical history: None reported No known family history Current Medications: Active Medications Generic Name Dose Route Start Last Admin Trade Name Freq PRN Reason Stop Dose Admin Al Hydrox/Mg Hydrox/Simethicone 30 ml 09/12/17 18:48 Maalox 30 Ml PO TID PRN Indigestion / Heartburn Clonidine HCl 0.1 mg 09/12/17 18:48 Catapres PO Q8 PRN COWS Score More or Equal to 5 Gabapentin 100 mg 09/13/17 10:00 09/13/17 09:09 Neurontin PO 100 mg TID MARVA Administration Loperamide HCl 2 mg 09/12/17 18:48 Imodium PO Q8 PRN Diarrhea Ondansetron HCl 4 mg 09/12/17 18:48 Zofran Tab PO Q8 PRN Nausea/Vomiting Pseudoephedrine HCl 60 mg 09/12/17 18:48 Sudafed Tab PO QID PRN Nasal/Sinus Congestion Trazodone HCl 50 mg 09/12/17 22:00 09/12/17 21:55 Desyrel PO Not Given HS MARVA Past Psychiatric History - Past Psychiatric History Previous Treatment History: None Pertinent Medical Hx (Current Medical&Sleep Prob, Allergies): Allergies Allergy/AdvReac Type Severity Reaction Status Date / Time No Known Allergies Allergy Verified 09/12/17 15:22 No Known Home Med 09/01/17 Review of Systems - Psychiatric Psychiatric: Abnormal Sleep Pattern, Anxiety, Difficulty Concentrating, Irritability. absent: Hallucinations, Homicidal Ideation, Suicidal Ideation Mental Status Examination - Personal Presentation Personal Presentation: Looks stated age - Affect Affect: Constricted - Motor Activity Motor Activity: Calm - Reliability in Providing Information Reliability in Providing Information: Fair - Speech Speech: Organized - Mood Mood: Anxious - Formal Thought Process Formal Thought Process: No Impairment - Cognitive Functions Orientation: Person, Place, Situation, Time Sensorium: Alert Attention/Concentration: Easily distracted Estimate of Intelligence: Average Judgement: Intact, as evidence by: Insight regarding need for hospitalization Memory: Recent intact, as evidence by: Ability to recall events of the day, Remote intact, as evidenced by: Abilit to recall sig. life events - Risk Risk: Withdrawal, Diminished functioning - Strength & Assets Inventory Strength & Assets Inventory: Cooperative - Limitations Limitations: Living alone, Other DSM 5 DX - DSM 5 DSM 5 Diagnosis: Opioid withdrawal Opioid use d/o - severe - Recommended/Plan of Treatment Treatment Recommendations and Plan of Treatment: Methadone detox Gabapentin for augmentation As needed medications All risks, benefits and alternatives of the meds discussed, and the pt agreed and understood. Attend groups and activities Supportive therapy and psychoeducation NV for abstinence CBT for relapse prevention Encourage MAT Refer to rehab or IOP, and self-help groups Smoking cessation with NV Nicotine patch 34 min Projected ELOS: 4-5 days Prognosis: Good with treatment - Smoking Cessation Smoking Cessation Initiated: Yes
[2017-09-14 09:06] VITALS: BP 139/77; PULSE 85; RESP 18; TEMP 98; O2SAT 100
== END 2017-09-14 12:20 | disposition left against medical advice (07) | DRG 743 ==
LOC: C.ER 14:52 → C.7D 17:34
PROVIDERS: ADMIT Psychiatry & Neurology Psychiatry; ATTEND Psychiatry & Neurology Psychiatry
PROC: HZ2ZZZZ Detoxification Services for Substance Abuse Treatment (ICD-10-PCS; principal; 2017-09-12)
PROC: HZ59ZZZ Individual Psychotherapy for Substance Abuse Treatment, Supportive (ICD-10-PCS; 2017-09-12)
PROC: HZ56ZZZ Individual Psychotherapy for Substance Abuse Treatment, Psychoeducation (ICD-10-PCS; 2017-09-12)
PROC: HZ90ZZZ Pharmacotherapy for Substance Abuse Treatment, Nicotine Replacement (ICD-10-PCS; 2017-09-12)
DX: F11.23 Opioid dependence with withdrawal (principal); F20.9 Schizophrenia, unspecified; F41.9 Anxiety disorder, unspecified; F17.210 Nicotine dependence, cigarettes, uncomplicated

== ENCOUNTER 2018-01-23 00:08 | Emergency (ER) | payer MEDICAID, OTHER ==
[2018-01-23 00:09] VITALS: BMI 20.5
--- NOTE | 2018-01-23 01:07 | C.PDOC ---
History Of Present Illness 47 year old male is brought to the ED by [facility] after being found leaning on a fence in the street. Patient admits to sniffing heroin today. Patient denies SI/ HI, hallucinations, fever chills, CP, SOB. Time Seen by Provider: 01/23/18 01:07 Chief Complaint (Nursing): Substance Abuse History Per: Patient, EMS History/Exam Limitations: intoxication Onset/Duration Of Symptoms: Days Suicide/Self Injury Attempted (Context): None Modifying Factor(s): Other (Heroin) Severity: None Associated Symptoms: denies: Depression, Suicidal Thoughts, Suicidal Plan Recent travel outside of the [place]: No Additional History Per: Patient, EMS, Law Enforcement Past Medical History Reviewed: Historical Data, Nursing Documentation, Vital Signs Vital Signs: Last Vital Signs Temp 97.4 F L 01/23/18 00:11 Pulse 70 01/23/18 03:20 Resp 18 01/23/18 03:20 BP 108/70 01/23/18 03:20 Pulse Ox 98 01/23/18 03:20 - Medical History PMH: Anxiety, Depression, Schizophrenia Denies: Diabetes, Hepatitis, HIV, HTN, Seizures, Sexually Transmitted Disease Surgical History: No Surg Hx - [facility] Procedures DETOXIFICATION SERVICES FOR SUBSTANCE ABUSE TREATMENT (09/12/17) GROUP VIOLENT CRIMES DETECTIVE FOR SUBSTANCE ABUSE TREATMENT, PSYCHOEDUCATION (03/05/17) INDIV PSYCHOTHERAPY FOR SUBSTANCE ABUSE TREATMENT, SUPPORT (09/12/17) INDIV PSYCHOTHERAPY FOR SUBSTANCE ABUSE, PSYCHOEDUCATION (09/12/17) PHARMACOTHERAPY FOR SUBSTANCE ABUSE, METHADONE MAINT (03/05/17) PHARMACOTHERAPY FOR SUBSTANCE ABUSE, NICOTINE REPLACE (09/12/17) Family History: States: Unknown Family Hx - Social History Hx Tobacco Use: Yes Hx Alcohol Use: No Hx Substance Use: Yes - Immunization History Hx Tetanus Toxoid Vaccination: No Hx Influenza Vaccination: No Hx Pneumococcal Vaccination: No Review Of Systems Constitutional: Negative for: Fever, Chills Cardiovascular: Negative for: Chest Pain Respiratory: Negative for: Shortness of Breath Gastrointestinal: Negative for: Nausea, Vomiting Skin: Negative for: Rash Psych: Negative for: Depression, Suicidal ideation Physical Exam - Physical Exam Appears: Non-toxic, No Acute Distress Skin: Warm, Dry, Other (no signs of trauma) Head: Normacephalic Eye(s): bilateral: Normal Inspection Oral Mucosa: Moist Neck: Supple Chest: Symmetrical Cardiovascular: Rhythm Regular Respiratory: No Rales, No Rhonchi, No Wheezing Gastrointestinal/Abdominal: Soft, No Tenderness, No Guarding, No Rebound Extremity: No Tenderness, No Swelling Extremity: Bilateral: Atraumatic, Normal Color And Temperature, Normal ROM Neurological/Psych: Oriented x3, Normal Speech Gait: Unable To Assess ED Course And Treatment O2 Sat by Pulse Oximetry: 99 (ON RA) Pulse Ox Interpretation: Normal Reevaluation Time: 05:08 Reassessment Condition: Improved Disposition Counseled Patient/Family Regarding: Studies Performed, Diagnosis, Need For Followup - Disposition Referrals: [facility] [Outside] Disposition: HOME/ ROUTINE Disposition Time: 01:07 Condition: FAIR Instructions: Polysubstance Abuse (DC) Forms: [facility] (Frisian) - Clinical Impression Clinical Impression: Heroin abuse - Scribe Statement The provider has reviewed the documentation as recorded by the Scribe Antonino Walker All medical record entries made by the Scribe were at my direction and personally dictated by me. I have reviewed the chart and agree that the record accurately reflects my personal performance of the history, physical exam, medical decision making, and the department course for this patient. I have also personally directed, reviewed, and agree with the discharge instructions and disposition.
[2018-01-23 05:22] VITALS: BP 113/85; PULSE 85; RESP 16; TEMP 97.6; O2SAT 97
== END 2018-01-23 05:28 | disposition home or self-care (01) ==
LOC: C.ER 00:08
DX: F11.10 Opioid abuse, uncomplicated (principal); F20.9 Schizophrenia, unspecified; Z72.0 Tobacco use

== ENCOUNTER 2018-02-01 18:03 | Inpatient (IN) | payer MEDICAID, OTHER ==
[2018-02-01 18:03] VITALS: BMI 20.5
--- NOTE | 2018-02-01 19:44 | C.PDOC ---
History Of Present Illness 47 year old male with a Hx of heroin abuse presents to the ER requesting detox. Denies suicidal ideation or homicidal ideation Time Seen by Provider: 02/01/18 18:39 Chief Complaint (Nursing): Substance Abuse History Per: Patient History/Exam Limitations: no limitations Onset/Duration Of Symptoms: Days Current Symptoms Are (Timing): Still Present Suicide/Self Injury Attempted (Context): None Associated Symptoms: denies: Suicidal Thoughts, Other (Homicidal ideation) Involuntary Hold By: None Recent travel outside of the [place]: No Past Medical History Reviewed: Historical Data, Nursing Documentation, Vital Signs Vital Signs: Last Vital Signs Temp 98.9 F 02/01/18 18:26 Pulse 81 02/01/18 18:26 Resp 18 02/01/18 18:26 BP 109/67 02/01/18 18:26 Pulse Ox 98 02/01/18 20:32 - Medical History PMH: Anxiety, Depression, Schizophrenia - [facility] Procedures DETOXIFICATION SERVICES FOR SUBSTANCE ABUSE TREATMENT (09/12/17) GROUP REVISING CLERK FOR SUBSTANCE ABUSE TREATMENT, PSYCHOEDUCATION (03/05/17) INDIV PSYCHOTHERAPY FOR SUBSTANCE ABUSE TREATMENT, SUPPORT (09/12/17) INDIV PSYCHOTHERAPY FOR SUBSTANCE ABUSE, PSYCHOEDUCATION (09/12/17) PHARMACOTHERAPY FOR SUBSTANCE ABUSE, METHADONE MAINT (03/05/17) PHARMACOTHERAPY FOR SUBSTANCE ABUSE, NICOTINE REPLACE (09/12/17) Family History: States: Unknown Family Hx - Social History Hx Tobacco Use: Yes Hx Alcohol Use: No Hx Substance Use: Yes (heroin) - Immunization History Hx Tetanus Toxoid Vaccination: No Hx Influenza Vaccination: No Hx Pneumococcal Vaccination: No Review Of Systems Except As Marked, All Systems Reviewed And Found Negative. Physical Exam - Physical Exam Appears: Non-toxic Skin: Normal Color, Warm, Dry Head: Atraumatic, Normacephalic Eye(s): bilateral: Normal Inspection Oral Mucosa: Moist Chest: Symmetrical, No Tenderness Cardiovascular: Rhythm Regular Respiratory: Normal Breath Sounds, No Rales, No Rhonchi, No Wheezing Gastrointestinal/Abdominal: Soft, No Tenderness Extremity: Normal ROM (x4) Neurological/Psych: Oriented x3, Normal Speech Gait: Steady ED Course And Treatment - Laboratory Results Result Diagrams: 02/01/18 19:43 02/01/18 19:43 O2 Sat by Pulse Oximetry: 98 (Room air) Pulse Ox Interpretation: Normal Medical Decision Making Medical Decision Making: Assessment: Heroin abuse Plan: * Blood work * Urinalysis * Crisis Patient accepted for admission to the detox unit by Dr. Antonio for opiate abuse. Disposition Discussed With .: Mendoza Antonio Counseled Patient/Family Regarding: Studies Performed, Diagnosis - Disposition Disposition: HOSPITALIZED Disposition Time: 20:33 Condition: FAIR Forms: [facility] (Hungarian) - Clinical Impression Clinical Impression: Opiate abuse, continuous - Scribe Statement The provider has reviewed the documentation as recorded by the Scribe Grabiel Rudolph All medical record entries made by the Scribe were at my direction and personally dictated by me. I have reviewed the chart and agree that the record accurately reflects my personal performance of the history, physical exam, medical decision making, and the department course for this patient. I have also personally directed, reviewed, and agree with the discharge instructions and disposition.
[2018-02-01 19:46] LABS: BASO # 0.1 K/uL (0.0-0.2); BASO % 0.7 % (0.0-2.0); EOS # 0.5 K/uL (0.0-0.7); EOS % 4.2 % (0.0-4.0); HEMOGLOBIN 12.2 g/dL (12.0-18.0); LYMPH # 3.1 K/uL (1.0-4.3); MEAN CORPUSCULAR HEMOGLOBIN 29.5 pg (27.0-31.0); MEAN CORPUSCULAR HGB CONC 33.2 g/dL (33.0-37.0); MEAN PLATELET VOLUME 8.4 fL (7.2-11.7); MONO # 1.1 K/uL (0.0-0.8); MONO % 8.7 % (0.0-10.0); NEUT % 62.4 % (50.0-75.0); RBC 4.12 Mil/uL (4.40-5.90); RED CELL DISTRIBUTION WIDTH 13.1 % (11.5-14.5); WHITE BLOOD COUNT 12.9 K/uL (4.8-10.8)
[2018-02-01 19:58] LABS: SQUAMOUS EPITHIAL < 1 /hpf (0-5); URINE BACTERIA RARE (<OCC); URINE BILIRUBIN NEGATIVE (NEGATIVE); URINE BLOOD NEGATIVE (NEGATIVE); URINE CLARITY Hazy (Clear); URINE COLOR Yellow (YELLOW); URINE GLUCOSE (UA) NORMAL (Normal); URINE LEUKOCYTE ESTERASE NEG Leu/uL (Negative); URINE PROTEIN NEGATIVE (NEGATIVE)
[2018-02-01 19:59] LABS: ALB/GLOB RATIO 1.4 (1.0-2.1); ALBUMIN 3.8 g/dL (3.5-5.0); ALT/SGPT 28 U/L (21-72); AST/SGOT 15 U/L (17-59); BLOOD UREA NITROGEN 10 mg/dL (9-20); CALCIUM 8.6 mg/dl (8.6-10.4); GFR AFRICAN-AMERICAN > 60; GFR NON-AFRICAN AMERICAN > 60
[2018-02-01 20:09] LABS: BARBITURATES, UR NEGATIVE (NEGATIVE); BENZODIAZEPINES, UR NEGATIVE (NEGATIVE); PHENCYCLIDINE, UR NEGATIVE (NEGATIVE)
[2018-02-01 20:12] LABS: OPIATES, UR POSITIVE (NEGATIVE)
--- NOTE | 2018-02-01 20:42 | PCM.BM ---
<Krystle Winston - Last Filed: 02/01/18 20:41> Treatment Plan Problems - Problems identified on initial assessmt POTIENTIAL FOR OPIATE WITHDRAWAL Date Initiated: 02/01/18 Time Initiated: 20:41 Assessment reference: NA Status: Active Treatment assets and liabiliti Patient Assests: ADL independent, physically healthy, negotiates basic needs, cognitively intact Patient Liabilities: substance abuse - Milieu Protocol Maintain good personal hygiene: daily Encourage regular showers, daily Remind patient to perform daily oral care, daily Assist patient to perform ADL's Maintain personal safety: every shift Educate patient to report safety concerns to staff, every shift Monitor environment for contraband/sharps Medication safety: Monitor for expected outcome, potential side effects: every shift, Assess barriers to learning: every shift, Assess readiness for medication education: every shift <Adam Jane - Last Filed: 02/02/18 13:48> - Diagnosis (1) Opiate abuse, continuous Status: Acute Interventions: 02/02/18 13:48 * Assess 7x/week regarding severity of withdrawal * Educate regarding risks, benefits, side effects and alternatives of medications * Use Motivational Interviewing for abstinence * Use CBT for relapse prevention * Medication management for withdrawal symptoms * Encourage medication assisted treatment *
[2018-02-02] MEDS ORDERED: Aluminum Hydroxide/Magnesium Hydroxide Susp (30 mL) PO PRN (06:37)
[2018-02-02 09:20] VITALS: RESP 18
--- NOTE | 2018-02-02 13:38 | PCM.PSYCH ---
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 He was with us but [facility] and has been using since then he admits. Patient reports that he had remained sober for 4 years and started going to the methadone program at [facility]. But he started developing side effects of the medications, including hair loss. He stopped going to the program and relapsed on heroin. He reports of using 15 bags daily, last use was yesterday, and this is more than he used last time he was here. Patient reports withdrawal symptoms including sweating, chills, irritability, nausea and anxiety. He reports irritability but denies any depressive, manic or anxiety symptoms. Patient denies any auditory or visual hallucinations or any psychotic symptoms. He reports off and on drinking but denies any other substance abuse, but sometimes MJ. Patient denies any history of inpatient psychiatric hospitalization and denies any h/o follow up with any psychiatrist. Past medical history: None reported No known family history Current Medications: Active Medications Generic Name Dose Route Start Last Admin Trade Name Freq PRN Reason Stop Dose Admin Al Hydrox/Mg Hydrox/Simethicone 30 ml 02/02/18 06:37 Maalox 30 Ml PO TID PRN Indigestion / Heartburn Clonidine HCl 0.1 mg 02/02/18 06:37 Catapres PO Q8 PRN COWS Score More or Equal to 5 Dicyclomine HCl 10 mg 02/02/18 06:38 Bentyl PO Q6 PRN Muscle spasm Hydroxyzine HCl 25 mg 02/02/18 06:38 Atarax PO Q6 PRN Anxiety Loperamide HCl 2 mg 02/02/18 06:37 Imodium PO Q8 PRN Diarrhea Ondansetron HCl 4 mg 02/02/18 06:37 02/02/18 10:29 Zofran Tab PO 4 mg Q8 PRN Administration Nausea/Vomiting Pseudoephedrine HCl 60 mg 02/02/18 06:37 Sudafed Tab PO QID PRN Nasal/Sinus Congestion Trazodone HCl 50 mg 02/01/18 21:43 02/01/18 21:48 Desyrel PO 50 mg HS PRN Administration Insomnia Past Psychiatric History - Past Psychiatric History Previous Treatment History: None Pertinent Medical Hx (Current Medical&Sleep Prob, Allergies): Allergies Allergy/AdvReac Type Severity Reaction Status Date / Time No Known Allergies Allergy Verified 02/01/18 18:23 No Known Home Med 09/01/17 Review of Systems - Neurological Neurological: UNREMARKABLE - Psychiatric Psychiatric: Abnormal Sleep Pattern, Anxiety, Difficulty Concentrating, Irritability. absent: Hallucinations, Homicidal Ideation, Paranoia, Suicidal Ideation Mental Status Examination - Personal Presentation Personal Presentation: Looks stated age - Affect Affect: Constricted - Motor Activity Motor Activity: Calm - Reliability in Providing Information Reliability in Providing Information: Fair - Speech Speech: Organized - Mood Mood: Other (irate) - Formal Thought Process Formal Thought Process: No Impairment - Cognitive Functions Orientation: Person, Place, Situation, Time Sensorium: Alert Attention/Concentration: Attentive Estimate of Intelligence: Average Judgement: Intact, as evidence by: Insight regarding need for hospitalization Memory: Recent intact, as evidence by: Ability to recall events of the day, Remote intact, as evidenced by: Abilit to recall sig. life events - Risk Risk: Withdrawal, Diminished functioning - Strength & Assets Inventory Strength & Assets Inventory: Cooperative - Limitations Limitations: Living alone, Other DSM 5 DX - DSM 5 DSM 5 Diagnosis: Opioid withdrawal Opioid use d/o - severe - Recommended/Plan of Treatment Treatment Recommendations and Plan of Treatment: Methadone detox Gabapentin for augmentation As needed medications All risks, benefits and alternatives of the meds discussed, and the pt agreed and understood. Attend groups and activities Supportive therapy and psychoeducation IA for abstinence CBT for relapse prevention Encourage MAT Refer to rehab or IOP, and self-help groups Smoking cessation with IA Nicotine patch 34 min Projected ELOS: 4-5 days Prognosis: good with MAt or rehab - Smoking Cessation Smoking Cessation Initiated: Yes
[2018-02-03 09:37] VITALS: O2SAT 99
--- NOTE | 2018-02-03 09:45 | PCM.PYCHPN ---
Psychiatric Progress Note - Psychiatric Progress Note Patient seen today, length of contact: 20 min Patient Chief Complaint: "I am not well, I want to leave" Problems Identified/Issues Discussed: The pt is seen, chart reviewed, case discussed with staff. The pt is compliant with medications and reports no side-effects. Symptoms are improving but needs more time to stabilize. However, he was very anxious and demanded to leave AMA. Embossing Press Operator Apprentice spoke to him about risks and ativan for anxiety given, then he agreed to stay. After care discussed, support and psychoeducation given. Medication Change: Yes (detox changes daily) Medical Record Reviewed: Yes Mental Status Examination - Cognitive Function Orientation: Person, Place, Situation, Time Memory: Intact Attention: Poor Concentration: Poor Association: WNL Fund of Knowledge: Poor - Mood Mood: Anxious, Other (irate) - Affect Affect: Constricted - Speech Speech: Appropriate - Formal Thought Process Formal Thought Process: No Impairment - Suicidal Ideation Suicidal Ideation: No - Homicidal Ideation Homicidal Ideation: No Goal/Treatment Plan - Goal/Treatment Plan Need for Continued Stay: Discharge may exacerbated symptoms, Severe functional impairment Progress Toward Problem(s) and Goals/Treatment Plan: Methadone detox Short-term ativan Gabapentin for augmentation As needed medications All risks, benefits and alternatives of the meds discussed, and the pt agreed and understood. Attend groups and activities Supportive therapy and psychoeducation [place] for abstinence CBT for relapse prevention Encourage MAT Refer to rehab or IOP, and self-help groups Smoking cessation with WA Nicotine patch 34 min Estimated Date of D/C: 02/05/18 - Smoking Cessation Smoking Cessation Initiated: Yes
[2018-02-03 13:37] VITALS: BP 108/70; PULSE 100; TEMP 97.9
--- NOTE | 2018-02-03 19:05 | PCM.PYCHDC ---
Mental Status Examination - Mental Status Examination Orientation: Person, Place, Situation, Time Memory: Intact Mood: Anxious, Other (irate) Affect: Constricted Speech: Appropriate Attention: WNL Concentration: Poor Association: WNL Fund of Knowledge: WNL Formal Thought Process: No Impairment Suicidal Ideation: No Current Homicidal Ideation?: No Discharge Summary - Discharge Note Reason for Hospitalization: Opioid detox Consultations:: List each consultation separately and include: 1. Reason for request. 2. Findings. 3. Follow-up Summary of Hospital Course include:: 1. Description of specific treatment plan utilized for patients during their course of treatmen. 2. Summarize the time- course for resolution of acute symptoms and/or regressed behaviors. 3. Describe issues identified and worked on during hospitalization. 4. Describe medication utilized. 5. Describe medical problems identified and treated. 6. 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 [facility] and has been using since then he admits. Patient reports that he had remained sober for 4 years and started going to the methadone program at [facility]. But he started developing side effects of the medications, including hair loss. He stopped going to the program and relapsed on heroin. He reports of using 15 bags daily, last use was yesterday, and this is more than he used last time he was here. Patient reports withdrawal symptoms including sweating, chills, irritability, nausea and anxiety. He reports irritability but denies any depressive, manic or anxiety symptoms. Patient denies any auditory or visual hallucinations or any psychotic symptoms. He reports off and on drinking but denies any other substance abuse, but sometimes MJ. Patient denies any history of inpatient psychiatric hospitalization and denies any h/o follow up with any psychiatrist. Past medical history: None reported No known family history Hospital course: The pt was admitted and started on treatment with psychotherapy, support, psychoeducation and medications. LA and CBT used. The pt attended groups and activities, as well as milieu therapy. All the risks and benefits of medications are discussed and the patient understood and agreed. The pt was improving but demanded d/c today. Nuclear Powerplant Mechanic was able to convince to stay and gave ativan to help with his anxiety with good result. However, a few hours later he again demanded to leave and left despite having been told and understood the risks of AMA levae, incl. but not limited to relapse, OD and even . Of note, this is his 2nd or 3rd AMA leave from our detox unit. He is likely a better candidate for methadone maintenance if he returns, b/c he gets too anxious, irate and impatient in our closed unit and leaves early. He also has an anger management issue; he was irate all the time. - Final Diagnosis (DSM 5) Condition upon Discharge: IMPROVED DSM 5: Opioid withdrawal Opioid use d/o - severe Anxiety d/o - unspecified Personality d/o - unspecified Disposition: AGAINST MEDICAL ADVICE Follow-up Treatment Plan: Consider methadone program Use relapse prevention skills Return to ER or call 911 if suicidal, homicidal or symptoms relapse. Stay away from stress, alcohol and drugs. See primary doctor regularly and get labs.
== END 2018-02-03 15:29 | disposition left against medical advice (07) | DRG 743 ==
LOC: C.ER 18:03 → C.7D 20:30
PROVIDERS: ADMIT Psychiatry & Neurology Psychiatry; ATTEND Psychiatry & Neurology Psychiatry
PROC: HZ2ZZZZ Detoxification Services for Substance Abuse Treatment (ICD-10-PCS; principal; 2018-02-01)
DX: F11.23 Opioid dependence with withdrawal (principal); F20.9 Schizophrenia, unspecified; F41.9 Anxiety disorder, unspecified; Z87.891 Personal history of nicotine dependence; F12.10 Cannabis abuse, uncomplicated